=== PATIENT | male | born 1995 | race Caucasian/White ===

== ENCOUNTER 2021-11-17 13:03 | Emergency (ER) | payer OTHER, SELFPAY ==
[2021-11-17 13:10] VITALS: BP 132/51; PULSE 105; RESP 16; TEMP 37.5; O2SAT 100
--- NOTE | 2021-11-17 13:20 | ED.EYEPROB ---
HPI - Eye Problem General Chief complaint: Eye Problems Stated complaint: something in rt eye Time Seen by Provider: 11/17/21 13:20 Source: patient History of Present Illness HPI Narrative: patient was putting boxes up in the garage and thinks he may have gotten a piece of dust in his eye. no vision problems no eye pain. no contacts. Feels like something is still in his right eye. Related Data Home Medications Medication Instructions Recorded Confirmed dextroamphetamine-amphetamine 15 mg PO DAILY 11/17/21 11/17/21 [Adderall XR] sertraline 50 mg PO DAILY 11/17/21 11/17/21 Allergies Allergy/AdvReac Type Severity Reaction Status Date / Time No Known Allergies Allergy Verified 11/17/21 13:25 Review of Systems Review of Systems: CONSTITUTIONAL: Denies fever, chills, or sweats. EYES: Denies visual changes, redness, or discharge. ENT: Denies rhinorrhea, congestion, sore throat, or otalgia. CARDIOVASCULAR: Denies chest pain, palpitations, or edema. RESPIRATORY: Denies cough or dyspnea. GASTROINTESTINAL: Denies abdominal pain, nausea, vomiting, or diarrhea. GENITOURINARY: Denies dysuria or hematuria. SKIN: Denies rash or itching. MUSCULOSKELETAL: Denies back pain, joint pain, or myalgia. NEUROLOGIC: Denies headache, numbness, or weakness. PSYCHIATRIC: Denies anxiety or depression. PMFSH Comments At time of signature, agree with nursing past medical, surgical, social and family history. There is no relevant family history pertinent to the presenting complaint Exam Narrative: GENERAL: Well-appearing, well-nourished, and in no acute distress. HEAD: Normocephalic, atraumatic. EYES: PERRLA and EOMI. ENT: Nares clear, no rhinorrhea or epistaxis. Mucous membranes moist. NECK: Supple. CHEST: Clear to auscultation. No respiratory distress. HEART: Regular rate and rhythm. No murmur heard. Normal peripheral pulses. ABDOMEN: Soft, nontender, nondistended, normal active bowel sounds. EXTREMITIES: Normal range of motion. No edema. SKIN: Warm, dry, no rash. NEURO: No focal deficits. Alert and oriented x3. Ronel Coma Scale Eye Opening: Spontaneous 4 Fenton Coma Scale Motor: Obeys Commands 6 Fenton Coma Scale Verbal: Oriented 5 Ronel Coma Scale Total 15 Eyes: Eyelids: eyelids normal Conjunctivae: conjunctivae normal Cornea: corneas abnormal on the right fluorescein used and abrasion and fluorescein used Pupils: Equal, round and reactive pupils present Eyes/upper lids images: 1. abrasion Course Course Level of Care: Express Care Visit MDM - Eye Problem Differential Diagnosis Differential diagnosis: Likely corneal abrasion, conjunctivitis, acute iritis, hyphema, periorbital cellulitis, subconjunctival hemorrhage, glaucoma, corneal ulcer and ruptured globe Critical Care Time Critical Care Time Critical Care Time: No Discharge Plan Discharge Clinical Impression: Corneal abrasion Patient Disposition: Home, Self-Care Condition: Stable Instructions: Antibiotic Form, Corneal Abrasion (DC) Additional Instructions: follow up with family eye doctor in 24-48 hours use eye drops as prescribed until gone if any new or worsening of symptoms go to er immediately Prescriptions: New ciprofloxacin HCl 0.3 % drops 2 drop RIGHT EYE Q4H PRN (Reason: abrasion) 5 Days Qty: 5 RF: 0 No Action dextroamphetamine-amphetamine [Adderall XR] 15 mg capsule,extended release 24hr 15 mg PO DAILY RF: 0 sertraline 50 mg tablet 50 mg PO DAILY RF: 0 Follow-up/Referrals: Gurmeet,DO Abdifatah [Primary Care Provider] -
== END 2021-11-17 13:35 | disposition home or self-care (01) ==
PROVIDERS: Emergency Provider Nurse Practitioner Family; PCP Student in an Organized Health Care Education/Training Program
DX: S05.01XA Injury of conjunctiva and corneal abrasion without foreign body, right eye, initial encounter (principal); X58.XXXA Exposure to other specified factors, initial encounter; F41.9 Anxiety disorder, unspecified; F90.9 Attention-deficit hyperactivity disorder, unspecified type
CPT/HCPCS: 99213; A9270; G0463

== ENCOUNTER 2022-10-01 16:43 | Emergency (ER) | payer OTHER, SELFPAY ==
[2022-10-01 16:52] VITALS: BP 125/81; PULSE 79; RESP 16; TEMP 36.9; O2SAT 100
--- NOTE | 2022-10-01 16:57 | ED.URI ---
HPI - URI/Sore Throat General Chief Complaint: Upper Respiratory Infection Stated Complaint: head congestion/nose bleeds Time Seen by Provider: 10/01/22 16:57 Source: patient and RN notes reviewed History of Present Illness HPI Narrative: Patient is a 27-year-old male who presents to urgent care with complaints of head congestion, sinus pressure, bloody noses and cough. Patient states that he was set up with a hoarse voice due to the postnasal drainage. States that it started 8 days ago. Patient is taking a COVID test at home which was negative. Patient has been taking Sudafed and Mucinex without much improvement. States that he is concerned because his is in her 1st trimester of . Denies any recent fevers, nausea, vomiting. No other acute complaints. No acute distress noted. Patient aware of the plan of care. Some parts of this dictation were generated by voice recognition software and may contain typographical and/or grammatical inaccuracies. Related Data Home Medications Medication Instructions Recorded Confirmed dextroamphetamine-amphetamine ER 25 mg PO DAILY 11/17/21 10/01/22 15 mg 24hr capsule,extend release (Adderall XR) sertraline 50 mg tablet 50 mg PO DAILY 11/17/21 10/01/22 Allergies Allergy/AdvReac Type Severity Reaction Status Date / Time No Known Allergies Allergy Verified 10/01/22 17:04 Review of Systems Review of Systems: CONSTITUTIONAL: Denies fever, chills, or sweats. EYES: Denies visual changes, redness, or discharge. ENT: Reports sinus congestion/ pressure, postnasal drainage CARDIOVASCULAR: Denies chest pain, palpitations, or edema. RESPIRATORY: reports cough without dyspnea GASTROINTESTINAL: Denies abdominal pain, nausea, vomiting, or diarrhea. GENITOURINARY: Denies dysuria or hematuria. SKIN: Denies rash or itching. MUSCULOSKELETAL: Denies back pain, joint pain, or myalgia. NEUROLOGIC: Denies headache, numbness, or weakness. All other systems reviewed are negative, except as documented in HPI. PMFSH Comments At the time of my signature, I reviewed and agree with the nursing past medical, surgical, social, and family history. There is no relevant family history pertinent to the patient complaint. Exam Narrative: GENERAL: This is a well-nourished, well-developed patient, in no apparent distress. HEAD: normocephalic, atraumatic. EYES: PERRL. Sclera clear/white. Vision is grossly intact. EARS: External ears normal, auditory canals clear and without drainage, TMs normal without perforation. Hearing grossly intact. NOSE: External nose normal with no obvious nasal discharge. Mild bilateral erythema nares with clear rhinorrhea THROAT: Mucous membranes moist, moderate postnasal drainage NECK: Neck supple CARDIOVASCULAR: Regular rate and rhythm without murmurs, gallops, or rubs. RESPIRATORY: Clear to auscultation. Breath sounds equal bilaterally. No wheezes, rales, or rhonchi. SKIN: warm, intact with no suspicious lesions or rash, good texture and turgor. NEURO: awake, alert, and oriented to person, place and time. There were no obvious focal neurologic abnormalities. EXTREMITIES: No clubbing, cyanosis, or edema. Course Course Level of Care: Express Care Visit Vital Signs Vital signs: Vital Signs Temperature 98.4 F 10/01/22 16:52 Pulse Rate 79 10/01/22 16:52 Respiratory Rate 16 10/01/22 16:52 Blood Pressure 125/81 10/01/22 16:52 Pulse Oximetry 100 10/01/22 16:52 Oxygen Delivery Room Air 10/01/22 16:52 Temperature 98.4 F 10/01/22 17:04 Pulse Rate 79 10/01/22 17:04 Respiratory Rate 16 10/01/22 17:04 Blood Pressure 125/81 10/01/22 17:04 Pulse Oximetry 100 10/01/22 17:04 Oxygen Delivery Room Air 10/01/22 17:04 reviewed MDM - URI/Sore Throat MDM Narrative Medical decision making narrative: advised patient to use normal saline spray in each nare. Use Benadryl prior to bedtime. Use a humidifier at night. Use
[2022-10-01 17:04] VITALS: BP 125/81; PULSE 79; RESP 16; TEMP 36.9; O2SAT 100
== END 2022-10-01 17:16 | disposition home or self-care (01) ==
PROVIDERS: Emergency Provider Nurse Practitioner Family; PCP Student in an Organized Health Care Education/Training Program
DX: J32.9 Chronic sinusitis, unspecified (principal); K21.9 Gastro-esophageal reflux disease without esophagitis; F90.9 Attention-deficit hyperactivity disorder, unspecified type; F41.9 Anxiety disorder, unspecified; F32.A Depression, unspecified
CPT/HCPCS: 99213; G0463